=== PATIENT | female | born 1990 | race Caucasian/White ===

== ENCOUNTER 2017-01-04 22:42 | Observation (INO) | payer MEDICAID ==
[~2017-01-04] VITALS: Ht 162.6 cm; Wt 100.0 kg
[~2017-01-04 22:42] MED LIST: [UNRECOGNIZED DRUG - CODE] PO
[2017-01-05] MEDS ORDERED: BUTALB/APAP/CAFFEINE 50MG/325MG/40MG PO PRN
[2017-01-05 00:19] LABS: ASPARTATE AMINO TRANSFERASE 9 U/L (15-37); BLOOD UREA NITROGEN 7 mg/dL (7-18)
== END 2017-01-05 05:00 | disposition home or self-care (01) ==
LOC: LDOP 22:42 → LDIP 01-05 00:30
PROVIDERS: ADMIT Obstetrics & Gynecology; ATTEND Obstetrics & Gynecology
DX: O26.893 Other specified pregnancy related conditions, third trimester (principal); R51 Headache; R03.0 Elevated blood-pressure reading, without diagnosis of hypertension; Z3A.36 36 weeks gestation of pregnancy
CPT/HCPCS: 36415; 59025; 80053; 81001; 82248; 82570; 84156; 84550; 85025; 99211; G0378; G0463

== ENCOUNTER 2017-01-14 17:55 | Inpatient (IN) | payer MEDICAID ==
[~2017-01-14] VITALS: Ht 157.5 cm; Wt 100.5 kg
[~2017-01-14 17:55] MED LIST changes: +CEFAZOLIN 1,000 MG ONE; +DEXAMETHASONE 4 MG/ML, 1ML ONE; +LABETALOL 5MG/ML 40ML VIAL ONE; +METOCLOPRAMIDE 5 MG/ML, 2ML ONE; +ONDANSETRON 2MG/ML, 2ML ONE; +OXYTOCIN 10 UNITS/ML, 1ML ONE; +SODIUM CITRATE/CITRIC ACID 30 ML UDC ONE
[2017-01-14 18:27] VITALS: BP 129/81
[2017-01-14] MEDS ORDERED: TERBUTALINE 1 MG/ML, 1ML IV PRN (18:30)
[2017-01-14 18:48] LABS: PATH.CAST-FLAG NOT PRESENT; SPERM-FLAG NOT PRESENT; SRC-FLAG NOT PRESENT; XTAL-FLAG NOT PRESENT; YLC-FLAG NOT PRESENT
[2017-01-14] MEDS ORDERED: PLEASE ENTER HEIGHT AND WEIGHT MC SCH (19:00)
[2017-01-14] MEDS ORDERED: TERBUTALINE 1 MG/ML, 1ML ONE (19:06)
[2017-01-14 19:32] LABS: ASPARTATE AMINO TRANSFERASE 11 U/L (15-37); BLOOD UREA NITROGEN 9 mg/dL (7-18)
[2017-01-14] MEDS ORDERED: TERBUTALINE 1 MG/ML, 1ML SQ ONE (19:44)
[2017-01-14] MEDS ORDERED: OXYTOCIN 30U/ 0.9% NaCL 500ML 500 ML IV ONE (19:54)
[2017-01-14] MEDS ORDERED: D5%-LACTATED RINGERS 1,000 ML IV SCH (19:54)
[2017-01-14] MEDS ORDERED: LACTATED RINGERS 1,000 ML IV SCH ×3 (19:54→20:30)
[2017-01-14] MEDS ORDERED: ONDANSETRON 2MG/ML, 2ML IVPush PRN ×2 (20:00→20:30)
[2017-01-14] MEDS ORDERED: TERBUTALINE 1 MG/ML, 1ML SQ PRN (20:00)
[2017-01-14] MEDS ORDERED: FENTANYL PF 100 MCG/2ML IV PRN ×2 (20:00→20:30)
[2017-01-14] MEDS ORDERED: FENTANYL PF 100 MCG/2ML IVPush PRN (20:00)
[2017-01-14] MEDS ORDERED: NEWBORN KIT ONE ×2 (20:15→20:44)
[2017-01-14] MEDS ORDERED: OXYTOCIN 30U/ 0.9% NaCL 500ML 500 ML IV SCH (20:29)
[2017-01-14] MEDS ORDERED: SODIUM CITRATE/CITRIC ACID 30 ML UDC PO ONE (20:30)
[2017-01-14] MEDS ORDERED: ONDANSETRON 2MG/ML, 2ML IVPush ONE (20:30)
[2017-01-14] MEDS ORDERED: METOCLOPRAMIDE 5 MG/ML, 2ML IV ONE (20:30)
[2017-01-14] MEDS ORDERED: LABETALOL 5MG/ML, 20ML IV PRN (20:30)
[2017-01-14] MEDS ORDERED: MEPERIDINE/PF 25MG/0.5ML IVPush PRN (20:30)
[2017-01-14] MEDS ORDERED: PROMETHAZINE 25 MG/ML, 1ML IV PRN (20:30)
[2017-01-14] MEDS ORDERED: ALBUTEROL SULFATE 2.5 MG/3 ML NPPB PRN (20:30)
[2017-01-14] MEDS ORDERED: EPHEDRINE 50 MG/ML, 1ML IVPush PRN (20:30)
[2017-01-14] MEDS ORDERED: hydrALAzine 20 MG/ML, 1ML IV PRN (20:30)
[2017-01-14] MEDS ORDERED: OXYcodone 5 MG/5 ML ORAL.SOL UDC PO PRN (20:30)
[2017-01-14] MEDS ORDERED: LACTATED RINGERS 1,000 ML IVBOLUS ONE (20:30)
[2017-01-14] MEDS ORDERED: HYDROcodone/APAP 7.5-325MG/15ML UDC PO PRN (20:30)
[2017-01-14] MEDS ORDERED: MIDAZOLAM 1 MG/ML, 2ML IV PRN (20:30)
[2017-01-14] MEDS ORDERED: SODIUM CITRATE/CITRIC ACID 30 ML UDC ONE (20:34)
[2017-01-14] MEDS ORDERED: METOCLOPRAMIDE 5 MG/ML, 2ML ONE (20:34)
[2017-01-14] MEDS ORDERED: FENTANYL PF 100 MCG/2ML ONE (20:36)
[2017-01-14] MEDS: OXYTOCIN 30U/ 0.9% NaCL 500ML 500 ML IV SCH (22:28)
[2017-01-14] MEDS: LACTATED RINGERS 1,000 ML IV SCH ×2 (22:28)
[2017-01-14] MEDS ORDERED: MEASLES,MUMPS&RUBELLA VACC/PF 0.5 ML SQ-VACC PRN (22:30)
[2017-01-14] MEDS ORDERED: DIPH,PERTUSS(ACELL),TET VAC/PF NC IM-VACC PRN (22:30)
[2017-01-14] MEDS: ACETAMINOPHEN 325 MG TABLET PO SCH (22:30)
[2017-01-14] MEDS ORDERED: OXYcodone IR 5MG TABLET PO PRN (22:30)
[2017-01-14] MEDS ORDERED: GLYCERIN ADULT SUPP PR PRN (22:30)
[2017-01-14] MEDS ORDERED: BISACODYL 10 MG SUPP PR PRN (22:30)
[2017-01-14] MEDS ORDERED: CALCIUM CARBONATE 500 MG TAB.CHEW PO PRN (22:30)
[2017-01-14] MEDS ORDERED: METOCLOPRAMIDE 5 MG/ML, 2ML IV PRN (22:30)
[2017-01-14] MEDS ORDERED: ACETAMINOPHEN 325 MG TABLET PO PRN (22:30)
[2017-01-14] MEDS ORDERED: SIMETHICONE 80 MG CHEW TAB PO PRN (22:30)
[2017-01-14] MEDS ORDERED: morphine SULFATE 10 MG/ML, 1ML IVPush PRN ×2 (22:30)
[2017-01-14] MEDS ORDERED: MISOPROSTOL 200 MCG TABLET PR PRN (22:30)
[2017-01-14] MEDS ORDERED: CARBOPROST TROMETHAMINE 250 MCG/ML, 1ML IM PRN (22:30)
[2017-01-14] MEDS ORDERED: ONDANSETRON 2MG/ML, 2ML IV PRN (22:30)
[2017-01-14] MEDS ORDERED: OXYcodone 5 MG/5 ML ORAL.SOL UDC ONE (22:34)
[2017-01-14] MEDS ORDERED: OXYTOCIN 30U/ 0.9% NaCL 500ML 500 ML ONE (23:04)
[2017-01-14] MEDS ORDERED: ONDANSETRON 2MG/ML, 2ML ONE (23:16)
[2017-01-15 01:00] VITALS: BP 128/81
[2017-01-15] MEDS: KETOROLAC 30 MG/1 ML IV SCH ×2 (01:11→07:43)
[2017-01-15] MEDS: ACETAMINOPHEN 325 MG TABLET PO SCH ×4 (05:53→19:32)
[2017-01-15 06:00] VITALS: BP 129/84
[2017-01-15] MEDS: LACTATED RINGERS 1,000 ML IV SCH ×5 (06:28→22:28)
[2017-01-15 07:30] VITALS: BP 139/84
[2017-01-15] MEDS: OXYTOCIN 30U/ 0.9% NaCL 500ML 500 ML IV SCH ×2 (08:28→18:28)
[2017-01-15] MEDS: PRENATAL VIT/IRON/FA 1 EACH TABLET PO SCH (10:00)
[2017-01-15] MEDS: DOCUSATE 100 MG CAPSULE PO PRN ×2 (10:00→19:33)
[2017-01-15] MEDS: OXYcodone IR 5MG TABLET PO PRN ×4 (10:00→22:56)
[2017-01-15] MEDS: IBUPROFEN 600 MG TABLET PO PRN ×2 (13:05→19:33)
[2017-01-15 14:14] VITALS: BP 102/60
[2017-01-15 16:45] VITALS: BP 113/70
[2017-01-15 19:43] VITALS: BP 115/77
[2017-01-16] MEDS: IBUPROFEN 600 MG TABLET PO PRN ×4 (01:54→22:58)
[2017-01-16] MEDS: ACETAMINOPHEN 325 MG TABLET PO SCH ×5 (01:54→22:58)
[2017-01-16] MEDS: LACTATED RINGERS 1,000 ML IV SCH ×5 (04:28→22:28)
[2017-01-16] MEDS: OXYTOCIN 30U/ 0.9% NaCL 500ML 500 ML IV SCH ×2 (04:28→14:28)
[2017-01-16] MEDS: OXYcodone IR 5MG TABLET PO PRN ×5 (05:58→22:57)
[2017-01-16 06:50] VITALS: BP 124/90
[2017-01-16] MEDS: DOCUSATE 100 MG CAPSULE PO PRN ×2 (08:21→22:58)
[2017-01-16] MEDS: PRENATAL VIT/IRON/FA 1 EACH TABLET PO SCH (08:22)
[2017-01-16 19:30] VITALS: BP 123/77
[2017-01-17] MEDS: OXYTOCIN 30U/ 0.9% NaCL 500ML 500 ML IV SCH ×2 (00:28→02:49)
[2017-01-17] MEDS: LACTATED RINGERS 1,000 ML IV SCH ×3 (00:28→02:49)
[2017-01-17] MEDS: OXYcodone IR 5MG TABLET PO PRN ×3 (03:05→12:58)
[2017-01-17] MEDS ORDERED: OXYC5CAP4 PO (03:56)
[2017-01-17] MEDS ORDERED: IBUP-1222 PO (03:58)
[2017-01-17] MEDS ORDERED: DOCU-30 PO (03:59)
[2017-01-17] MEDS ORDERED: ACET325T14 PO (04:01)
[2017-01-17] MEDS: IBUPROFEN 600 MG TABLET PO PRN ×2 (04:55→12:58)
[2017-01-17] MEDS: ACETAMINOPHEN 325 MG TABLET PO SCH ×2 (04:55→12:58)
[2017-01-17] MEDS: DOCUSATE 100 MG CAPSULE PO PRN (07:52)
[2017-01-17] MEDS: PRENATAL VIT/IRON/FA 1 EACH TABLET PO SCH (07:52)
[2017-01-17 07:56] VITALS: BP 129/85
== END 2017-01-17 13:30 | disposition home or self-care (01) | DRG 765 ==
LOC: LDOP 17:55 → UNDOADMOB 18:00 → OBSVTOIN 18:00 → LDIP 18:00 → INTOOBSV 18:00 → OBSVTOIN 19:58 → LDIP 19:58 → 2NW 01-15 00:06
PROVIDERS: ADMIT Student in an Organized Health Care Education/Training Program; ATTEND Student in an Organized Health Care Education/Training Program
PROC: 10D00Z1 Extraction of Products of Conception, Low, Open Approach (ICD-10-PCS; principal; 2017-01-14)
DX: O32.1XX0 Maternal care for breech presentation, not applicable or unspecified (principal); O99.354 Diseases of the nervous system complicating childbirth; O14.04 Mild to moderate pre-eclampsia, complicating childbirth; Z37.0 Single live birth; Z3A.38 38 weeks gestation of pregnancy; G43.909 Migraine, unspecified, not intractable, without status migrainosus
CPT/HCPCS: 36415; 59412; 80053; 81001; 82248; 82570; 82803; 84156; 84550; 85025; 86850; 86900; 90715; J0690; J1100; J1885; J2405; J3010; J2270; J2590; J2765; J3105; J7120

== ENCOUNTER 2017-04-20 11:23 | Emergency (ER) | payer MEDICAID ==
[~2017-04-20] VITALS: Ht 154.9 cm; Wt 96.0 kg
[~2017-04-20 11:23] MED LIST changes: +ACET325T14 PO; -CEFAZOLIN 1,000 MG ONE; -DEXAMETHASONE 4 MG/ML, 1ML ONE; +DOCU-131 PO; +IBUP-1222 PO; -LABETALOL 5MG/ML 40ML VIAL ONE; -METOCLOPRAMIDE 5 MG/ML, 2ML ONE; -ONDANSETRON 2MG/ML, 2ML ONE; +OXYC5CAP2 PO; -OXYTOCIN 10 UNITS/ML, 1ML ONE; -SODIUM CITRATE/CITRIC ACID 30 ML UDC ONE
[2017-04-20] MEDS ORDERED: LIDOCAINE 1%, 20ML ONE ×2 (12:07→13:05)
[2017-04-20] MEDS ORDERED: HYDROcodone/APAP 5/325 TABLET ONE (12:42)
[2017-04-20] MEDS ORDERED: HYDROcodone/APAP 5/325 TABLET PO ONE (13:00)
[2017-04-20] MEDS ORDERED: BACITRACIN ZINC OINT 500U/GM, 0.9 GM ONE (13:54)
[2017-04-20 14:23] VITALS: BP 137/87
== END 2017-04-20 14:27 | disposition home or self-care (01) ==
LOC: ED 14:20
DX: S01.01XA Laceration without foreign body of scalp, initial encounter (principal); W18.09XA Striking against other object with subsequent fall, initial encounter; Y93.89 Activity, other specified; Y99.8 Other external cause status; Y92.89 Other specified places as the place of occurrence of the external cause
CPT/HCPCS: 12002; 99284

== ENCOUNTER 2017-04-28 10:03 | Emergency (ER) | payer MEDICAID ==
[~2017-04-28] VITALS: Ht 154.9 cm; Wt 96.1 kg
[2017-04-28 10:08] VITALS: BP 131/74
[2017-04-28] MEDS ORDERED: BACITRACIN ZINC OINT 500U/GM, 0.9 GM ONE (10:39)
== END 2017-04-28 10:44 | disposition home or self-care (01) ==
LOC: ED 10:38
DX: S01.81XD Laceration without foreign body of other part of head, subsequent encounter (principal)
CPT/HCPCS: 99282

== ENCOUNTER 2018-08-13 13:07 | Emergency (ER) | payer MEDICAID ==
[~2018-08-13] VITALS: Ht 157.5 cm; Wt 108.1 kg
--- NOTE | 2018-08-13 13:34 | NUR ---
BREAK RN: CONTACT WITH PT. 27 YR OLD FEMALE HERE WITH "I HAVE HAD A FEVER AND BODY ACHE FOR LIKE 4 DAYS ALREADY, I HAVE BEEN NAUSEATED. I HAD DIARRHEA YESTERDAY. I ATE BREAKFAST BUT I HAVENT GONE TO THE BR TODAY.
--- NOTE | 2018-08-13 13:37 | NUR ---
REPORT TO LENARD BROOKE.
--- NOTE | 2018-08-13 13:48 | NUR ---
PT DENINES DIARRHEA TODAY. PT STATES, "I HAVE A SORE THROAT, SINCE WEDNESDAY, FEVERS, BUT I DON'T HAVE A THERMOMETER AT HOME SO I DIDN'T CHECK THE TEMP. I GET STREP THROAT EVERY YEAR. THE DOCTORS AT [facility] SAID I SHOULD BET MY TONSILS REMOVED." NADN. ALL SAFETY MEASURES IN PLACE. PT HAS BLANKET AND CALL LIGHT WITHIN REACH. NO NEEDS EXPRESSED AT THIS TIME.
[2018-08-13] MEDS ORDERED: D-ME245.3 PO (13:52)
[2018-08-13] MEDS ORDERED: KETOROLAC 30 MG/1 ML IM ONE (14:00)
[2018-08-13] MEDS ORDERED: KETOROLAC 30 MG/1 ML ONE (14:11)
[2018-08-13 14:48] LABS: RAPID INFLUENZA A Negative (Negative); RAPID INFLUENZA B Negative (Negative)
--- NOTE | 2018-08-13 14:58 | NUR ---
PT STATES, "MY THROAT PAIN IS STILL THERE, BUT MY BODYACHES ARE BETTER."
--- NOTE | 2018-08-13 15:28 | NUR ---
Patient given discharge instructions and they have confirmed that they understand the instructions. Patient ambulatory with steady gait. PT LEFT WITH PRESCRIPTION, DISCHARGE PAPERWORK, AND ALL PERSONAL BELONGINGS.
[2018-08-13 15:29] VITALS: BP 134/81
== END 2018-08-13 15:31 | disposition home or self-care (01) ==
LOC: ED 15:28
DX: J02.0 Streptococcal pharyngitis (principal)
CPT/HCPCS: 87081; 87400; 87880; 96372; 99283; J1885

== ENCOUNTER 2018-08-15 18:29 | Emergency (ER) | payer MEDICAID ==
[~2018-08-15] VITALS: Ht 156.2 cm; Wt 106.5 kg
[~2018-08-15 18:29] MED LIST changes: +D-ME245.3 PO
[2018-08-15 18:58] LABS: BASOPHILS # (AUTO) 0.02 x10^3/uL (0-0.1); BASOPHILS % (AUTO) 0 % (0-1); EOSINOPHILS # (AUTO) 0.01 x10^3/uL (0-0.4); EOSINOPHILS % (AUTO) 0 % (1-7); LYMPHOCYTES # (AUTO) 1.83 x10^3/uL (1-3.4); LYMPHOCYTES % (AUTO) 16 % (22-44); MD NO; MEAN CORPUSCULAR HEMOGLOBIN 29.9 pg (27.0-34.8); MEAN CORPUSCULAR HGB CONC 33.7 g/dL (32.4-35.8); MEAN CORPUSCULAR VOLUME 88.8 fL (80-100); MEAN PLATELET VOLUME 8.3 fL (7.4-10.4); MONOCYTES % (AUTO) 3 % (2-9); NEUTROPHILS # (AUTO) 9.51 x10^3/uL (1.8-6.8); NEUTROPHILS % (AUTO) 81 % (42-75); PLATELET COUNT 304 x10^3/uL (130-400); RED BLOOD COUNT 4.72 x10^6/uL (3.82-5.3)
[2018-08-15 19:12] LABS: ALBUMIN 3.8 g/dL (3.4-5.0); ANION GAP 8 mmol/L (5-15); CALCIUM 8.8 mg/dL (8.5-10.1); CHLORIDE 106 mmol/L (98-107)
--- NOTE | 2018-08-15 19:16 | NUR ---
PT TO ROOM FROM LOBBY
[2018-08-15 19:17] LABS: CREATININE 0.63 mg/dL (0.55-1.02)
--- NOTE | 2018-08-15 19:22 | NUR ---
PT ARRIVES TO ED WITH SORE THROAT AND FEELS LIKE HER TONSILS ARE MORE SWOLLEN. PT WAS SEEN HERE 3 DAYS AGO AND STARTED ON ABX FOR PAOSSIBLE BACTERIAL INFECTION IN TONSILS. PT SAID SHE FELT CHILLS LAST NIGHT. PT RESTING IN BED. VSS.
[2018-08-15] MEDS ORDERED: DEXAMETHASONE 4 MG TABLET PO ONE (20:00)
[2018-08-15] MEDS ORDERED: KETOROLAC 30 MG/1 ML IM ONE (20:00)
[2018-08-15] MEDS ORDERED: KETOROLAC 30 MG/1 ML ONE (20:06)
[2018-08-15] MEDS ORDERED: DEXAMETHASONE 4 MG TABLET ONE (20:06)
[2018-08-15] MEDS ORDERED: ACETAMINOPHEN 500 MG TABLET ONE (20:13)
[2018-08-15] MEDS ORDERED: SODIUM CHLORIDE 0.9% 1,000ML IVBOLUS ONE (20:30)
[2018-08-15] MEDS ORDERED: ACETAMINOPHEN 500 MG TABLET PO ONE (20:30)
[2018-08-15] MEDS ORDERED: SODIUM CHLORIDE FLUSH 10ML SYR IVF ONE (20:30)
--- NOTE | 2018-08-15 21:20 | NUR ---
Lab informed that delay in urine is due to no order.
[2018-08-15 21:26] LABS: MICROSCOPIC AUTO
[2018-08-15 21:32] LABS: CULTURE INDICATED? NO
[2018-08-15] MEDS ORDERED: AZITHROMYCIN 500 MG TABLET PO ONE (22:00)
[2018-08-15] MEDS ORDERED: AZITHROMYCIN 500 MG TABLET ONE (22:18)
--- NOTE | 2018-08-15 22:34 | NUR ---
PT MEDICATED PER EMAR.
[2018-08-15 22:53] VITALS: BP 128/87
--- NOTE | 2018-08-15 22:53 | NUR ---
Patient/Caregiver given discharge instructions and they have confirmed that they understand the instructions. Patient ambulatory with steady gait.
== END 2018-08-15 23:03 ==
LOC: ED 21:58
DX: J18.9 Pneumonia, unspecified organism (principal); K08.89 Other specified disorders of teeth and supporting structures
CPT/HCPCS: 36415; 71046; 80048; 81001; 82040; 84703; 85025; 86308; 93005; 96372; 99284; J1885; J7030

== ENCOUNTER 2018-12-18 11:44 | Emergency (ER) | payer MEDICAID ==
[~2018-12-18] VITALS: Ht 154.9 cm; Wt 106.9 kg
[~2018-12-18 11:44] MED LIST changes: +oral contraceptive PO
[2018-12-18 11:54] VITALS: BP 136/90
[2018-12-18] MEDS ORDERED: DEXAMETHASONE 4 MG TABLET PO ONE (12:00)
[2018-12-18] MEDS ORDERED: DEXAMETHASONE 4 MG TABLET ONE (12:15)
== END 2018-12-18 13:05 | disposition home or self-care (01) ==
LOC: ED 12:40
DX: B34.9 Viral infection, unspecified (principal)
CPT/HCPCS: 87081; 87880; 99283

== ENCOUNTER 2019-02-02 20:06 | Emergency (ER) | payer MEDICAID ==
[~2019-02-02] VITALS: Ht 157.5 cm; Wt 107.5 kg
[2019-02-02] MEDS ORDERED: KETOROLAC 30 MG/1 ML ONE (20:40)
--- NOTE | 2019-02-02 20:50 | NUR ---
URINE COLLECTED/SENT TO LAB. MED GIVEN PER ERP ORDER. CALL LIGHT WITHIN REACH, WARM BLANKET PROVIDED.
[2019-02-02] MEDS ORDERED: KETOROLAC 30 MG/1 ML IM ONE (21:00)
[2019-02-02 21:01] LABS: HCG UR SG 1.025 (1.003-1.030)
[2019-02-02 21:03] LABS: MICROSCOPIC INDICATED
[2019-02-02 21:04] LABS: CULTURE INDICATED? YES
[2019-02-02 21:32] VITALS: BP 128/78
== END 2019-02-02 21:34 | disposition home or self-care (01) ==
LOC: ED 20:23
DX: M54.5 Low back pain (principal); F17.200 Nicotine dependence, unspecified, uncomplicated
CPT/HCPCS: 72110; 81001; 81025; 87086; 87147; 96372; 99284; J1885

== ENCOUNTER 2019-06-08 10:22 | Emergency (ER) | payer MEDICAID ==
[~2019-06-08] VITALS: Ht 154.9 cm; Wt 103.8 kg
[~2019-06-08 10:22] MED LIST changes: +[UNRECOGNIZED DRUG - CODE] PO; -[UNRECOGNIZED DRUG - CODE] PO
[2019-06-08 10:32] VITALS: BP 116/66
[2019-06-08 11:35] LABS: RAPID INFLUENZA A Negative (Negative); RAPID INFLUENZA B Negative (Negative)
== END 2019-06-08 12:18 | disposition home or self-care (01) ==
LOC: ED 12:06
DX: O98.511 Other viral diseases complicating pregnancy, first trimester (principal); B34.9 Viral infection, unspecified; Z3A.13 13 weeks gestation of pregnancy; Z87.891 Personal history of nicotine dependence
CPT/HCPCS: 87081; 87400; 87880; 99283

== ENCOUNTER 2019-06-19 10:07 | Emergency (ER) | payer MEDICAID ==
[~2019-06-19] VITALS: Ht 154.9 cm; Wt 102.0 kg
--- NOTE | 2019-06-19 10:48 | NUR ---
PATIENT PRESENTS TO ED TODAY FOR FREQUENT URINATION AND LOW BACK PAIN. 15 WEEKS , DENIES ABD PAIN/VAG BLEEDING. PATIENT AMB WITH STEADY GAIT TO BATHROOM, UA COLLECTED AND SENT TO LAB. CALL LIGHT WITHIN REACH.
[2019-06-19] MEDS ORDERED: PREN1TAB60 PO (10:54)
[2019-06-19] MEDS ORDERED: IRON15TA3 PO (10:55)
[2019-06-19 11:20] LABS: MICROSCOPIC AUTO
[2019-06-19 11:23] LABS: CULTURE INDICATED? YES
[2019-06-19 11:51] LABS: BASOPHILS # (AUTO) 0.05 x10^3/uL (0-0.1); BASOPHILS % (AUTO) 1 % (0-1); EOSINOPHILS # (AUTO) 0.07 x10^3/uL (0-0.4); EOSINOPHILS % (AUTO) 1 % (1-7); LYMPHOCYTES # (AUTO) 2.37 x10^3/uL (1-3.4); LYMPHOCYTES % (AUTO) 25 % (22-44); MD NO; MEAN CORPUSCULAR HEMOGLOBIN 29.7 pg (27.0-34.8); MEAN CORPUSCULAR HGB CONC 33.2 g/dL (32.4-35.8); MEAN CORPUSCULAR VOLUME 89.4 fL (80-100); MEAN PLATELET VOLUME 8.8 fL (7.4-10.4); MONOCYTES # (AUTO) 0.33 x10^3/uL (0.2-0.8); MONOCYTES % (AUTO) 3 % (2-9); NEUTROPHILS % (AUTO) 70 % (42-75); PLATELET COUNT 295 x10^3/uL (130-400); RED CELL DISTRIBUTION WIDTH 14.2 % (9.6-15.2)
[2019-06-19 11:53] VITALS: BP 126/71
--- NOTE | 2019-06-19 11:53 | NUR ---
VS UPDATED IN CHART, PATIENT SITTING IN GURNEY, RESP EVEN/UNLABORED, NADN. AWAITING LAB RESULTS PRIOR TO RECHECK. NO ADDITIONAL NEEDS AT THIS TIME.
[2019-06-19 12:03] LABS: ALBUMIN 3.2 g/dL (3.4-5.0); ANION GAP 5 mmol/L (5-15); CALCIUM 8.8 mg/dL (8.5-10.1); CHLORIDE 108 mmol/L (98-107)
[2019-06-19 12:11] LABS: ALANINE AMINOTRANSFERASE 9 U/L (12-78); ALKALINE PHOSPHATASE 39 U/L (45-117); BILIRUBIN,TOTAL 0.3 mg/dL (0.2-1.0); CREATININE 0.46 mg/dL (0.55-1.02); TOTAL PROTEIN 7.3 g/dL (6.4-8.2)
--- NOTE | 2019-06-19 12:57 | NUR ---
Patient/Caregiver given discharge instructions and they have confirmed that they understand the instructions. Patient ambulatory with steady gait. Pt left in NAD with all personal belongings.
== END 2019-06-19 12:59 | disposition home or self-care (01) ==
LOC: ED 12:44
DX: O26.892 Other specified pregnancy related conditions, second trimester (principal); R10.9 Unspecified abdominal pain; Z3A.15 15 weeks gestation of pregnancy
CPT/HCPCS: 36415; 76815; 80053; 81001; 85025; 87086; 99284

== ENCOUNTER 2019-07-31 18:50 | Emergency (ER) | payer SELFPAY ==
[~2019-07-31] VITALS: Ht 154.9 cm; Wt 101.4 kg
[~2019-07-31 18:50] MED LIST changes: +IRON15TA3 PO; +PREN1TAB60 PO
[2019-07-31 19:22] VITALS: BP 90/75
--- NOTE | 2019-07-31 19:26 | NUR ---
PT TO LOBBY, WAIT TIME EXPLAINED.
[2019-07-31] MEDS ORDERED: ACETAMINOPHEN 325 MG TABLET ONE (20:07)
[2019-07-31] MEDS ORDERED: ACETAMINOPHEN 500 MG TABLET PO ONE (20:30)
[2019-07-31 20:34] LABS: RAPID INFLUENZA A Negative (Negative); RAPID INFLUENZA B Negative (Negative)
== END 2019-07-31 21:07 | disposition home or self-care (01) ==
LOC: ED 20:34
DX: J02.9 Acute pharyngitis, unspecified (principal); R05 Cough; M79.10 Myalgia, unspecified site
CPT/HCPCS: 87081; 87400; 87880; 99283

== ENCOUNTER 2019-08-03 15:43 | Emergency (ER) | payer MEDICAID ==
[~2019-08-03] VITALS: Ht 154.9 cm; Wt 100.0 kg
[2019-08-03 15:55] VITALS: BP 124/69
--- NOTE | 2019-08-03 16:23 | NUR ---
FIRST CONTACT WITH PT. PT STATES "I THINK I HAVE A SINUS INFECTION. IT'S BEEN THE LAST TWO WEEKS." PT 21 WEEKS NO C/O ABD PAIN, VB. PT'S AOX4. RESPS EVEN AND UNLABORED.
--- NOTE | 2019-08-03 17:05 | NUR ---
Patient given discharge instructions and they have confirmed that they understand the instructions. Patient ambulatory with steady gait.
== END 2019-08-03 17:06 | disposition home or self-care (01) ==
LOC: ED 16:45
DX: B34.9 Viral infection, unspecified (principal)
CPT/HCPCS: 71046; 99283

== ENCOUNTER 2019-12-07 00:37 | Inpatient (IN) | payer MEDICAID ==
[~2019-12-07] VITALS: Ht 154.9 cm; Wt 104.5 kg
[2019-12-07] MEDS ORDERED: D5%-LACTATED RINGERS 1,000 ML IV SCH (04:56)
[2019-12-07] MEDS ORDERED: OXYTOCIN 30U/ 0.9% NaCL 500ML 500 ML IV PRN (04:56)
[2019-12-07] MEDS ORDERED: OXYTOCIN 30U/ 0.9% NaCL 500ML 500 ML IV ONE (04:56)
[2019-12-07] MEDS ORDERED: FENTANYL PF 100 MCG/2ML IVPush PRN (05:00)
[2019-12-07] MEDS ORDERED: ALUMINUM/MAG/SIMETHICONE 30 ML UDC PO PRN (05:00)
[2019-12-07] MEDS ORDERED: CALCIUM CARBONATE 500 MG TAB.CHEW PO PRN (05:00)
[2019-12-07] MEDS ORDERED: FENTANYL PF 100 MCG/2ML IV PRN (05:00)
[2019-12-07] MEDS ORDERED: PENICILLIN GK 5,000,000 UNITS in DEXTROSE 5% 100 ML IVPB ONE (05:00)
[2019-12-07] MEDS ORDERED: TERBUTALINE 1 MG/ML, 1ML SQ PRN (05:00)
[2019-12-07] MEDS ORDERED: ONDANSETRON 2MG/ML, 2ML IVPush PRN ×2 (05:00→14:00)
[2019-12-07] MEDS: LACTATED RINGERS 1,000 ML IV SCH ×2 (05:15→10:27)
[2019-12-07 05:33] LABS: BASOPHILS # (AUTO) 0.06 x10^3/uL (0-0.1); BASOPHILS % (AUTO) 1 % (0-1); EOSINOPHILS # (AUTO) 0.03 x10^3/uL (0-0.4); EOSINOPHILS % (AUTO) 0 % (1-7); LYMPHOCYTES # (AUTO) 3.06 x10^3/uL (1-3.4); LYMPHOCYTES % (AUTO) 29 % (22-44); MD NO; MEAN CORPUSCULAR HEMOGLOBIN 27.8 pg (27.0-34.8); MEAN CORPUSCULAR HGB CONC 32.9 g/dL (32.4-35.8); MEAN CORPUSCULAR VOLUME 84.5 fL (80-100); MEAN PLATELET VOLUME 9.6 fL (7.4-10.4); MONOCYTES # (AUTO) 0.47 x10^3/uL (0.2-0.8); MONOCYTES % (AUTO) 5 % (2-9); NEUTROPHILS # (AUTO) 6.82 x10^3/uL (1.8-6.8); NEUTROPHILS % (AUTO) 65 % (42-75); PLATELET COUNT 224 x10^3/uL (130-400); RED BLOOD COUNT 3.89 x10^6/uL (3.82-5.3)
[2019-12-07] MEDS ORDERED: OXYTOCIN 30U/ 0.9% NaCL 500ML 500 ML ONE ×2 (06:43→19:15)
[2019-12-07] MEDS ORDERED: NEWBORN KIT ONE (06:43)
[2019-12-07] MEDS ORDERED: LIDOCAINE 1%, 20ML ONE (07:00)
[2019-12-07] MEDS ORDERED: MISOPROSTOL 200 MCG TABLET ONE (07:01)
[2019-12-07] MEDS ORDERED: FENTANYL PF 500 MCG, BUPIVACAINE/PF 0.5%, 30ML 62.5 ML in SODIUM CHLORIDE 0.9% 177.5 ML EPIDCONT SCH (09:14)
[2019-12-07] MEDS ORDERED: LACTATED RINGERS 1,000 ML IVBOLUS PRN ×2 (09:30→14:00)
[2019-12-07] MEDS ORDERED: FENTANYL PF 100 MCG/2ML ONE (10:17)
[2019-12-07] MEDS: PENICILLIN GK 2,500,000 UNITS in DEXTROSE 5% 100 ML IVPB SCH ×2 (10:41→15:33)
[2019-12-07] MEDS ORDERED: BUPIVACAINE 0.25% ONE (13:25)
[2019-12-07] MEDS ORDERED: FENTANYL/BUPIV./NS/PF 250 ML EPIDCONT SCH (13:51)
[2019-12-07] MEDS ORDERED: LACTATED RINGERS 1,000 ML IV SCH (13:51)
[2019-12-07] MEDS ORDERED: NALOXONE 0.4 MG/ML, 1ML IVPush PRN (14:00)
[2019-12-07] MEDS ORDERED: EPHEDRINE 50 MG/ML, 1ML IVPush PRN (14:00)
[2019-12-07] MEDS ORDERED: DIPHENHYDRAMINE 50 MG/ML, 1ML IVPush PRN (14:00)
[2019-12-07] MEDS: OXYTOCIN 30U/ 0.9% NaCL 500ML 500 ML IV SCH (18:54)
[2019-12-07] MEDS ORDERED: ACETAMINOPHEN 325 MG TABLET PO PRN (19:00)
[2019-12-07] MEDS ORDERED: RHOGAM FROM BLOOD BANK 1 NOTE EA IM/IV ONE (19:00)
[2019-12-07] MEDS ORDERED: ONDANSETRON 2MG/ML, 2ML IV PRN (19:00)
[2019-12-07] MEDS ORDERED: MISOPROSTOL 200 MCG TABLET PR PRN (19:00)
[2019-12-07] MEDS ORDERED: BISACODYL 10 MG SUPP PR PRN (19:00)
[2019-12-07] MEDS ORDERED: OXYcodone/APAP 5/325MG TABLET PO PRN (19:00)
[2019-12-07 21:10] VITALS: BP 128/85
[2019-12-08] MEDS: IBUPROFEN 800 MG TABLET PO PRN ×3 (00:06→16:27)
[2019-12-08] MEDS: DOCUSATE 100 MG CAPSULE PO PRN ×2 (00:08→07:23)
[2019-12-08 00:15] VITALS: BP 111/59
[2019-12-08 02:59] LABS: BASOPHILS # (AUTO) 0.05 x10^3/uL (0-0.1); BASOPHILS % (AUTO) 0 % (0-1); EOSINOPHILS # (AUTO) 0.04 x10^3/uL (0-0.4); EOSINOPHILS % (AUTO) 0 % (1-7); LYMPHOCYTES # (AUTO) 2.67 x10^3/uL (1-3.4); LYMPHOCYTES % (AUTO) 23 % (22-44); MD NO; MEAN CORPUSCULAR VOLUME 84.7 fL (80-100); MEAN PLATELET VOLUME 9.8 fL (7.4-10.4); MONOCYTES # (AUTO) 0.46 x10^3/uL (0.2-0.8); MONOCYTES % (AUTO) 4 % (2-9); NEUTROPHILS # (AUTO) 8.56 x10^3/uL (1.8-6.8); NEUTROPHILS % (AUTO) 73 % (42-75); PLATELET COUNT 206 x10^3/uL (130-400); RED BLOOD COUNT 3.84 x10^6/uL (3.82-5.3); RED CELL DISTRIBUTION WIDTH 16.5 % (9.6-15.2)
[2019-12-08 04:00] VITALS: BP 106/59
[2019-12-08] MEDS: OXYTOCIN 30U/ 0.9% NaCL 500ML 500 ML IV SCH ×2 (04:54→14:54)
[2019-12-08 07:30] VITALS: BP 123/85
[2019-12-08] MEDS ORDERED: PRENATAL VIT/IRON/FA 1 EACH TABLET PO SCH (09:00)
[2019-12-08] MEDS: HYDROcodone/APAP 5/325 TABLET PO PRN ×2 (10:37→16:27)
[2019-12-08] MEDS ORDERED: DOCU-131 PO (16:20)
[2019-12-08] MEDS ORDERED: IBUP-1223 PO (16:20)
[2019-12-08] MEDS ORDERED: MEASLES,MUMPS&RUBELLA VACC/PF 0.5 ML SQ-VACC ONE (18:56)
== END 2019-12-08 19:55 | disposition home or self-care (01) | DRG 807 ==
LOC: LDIP 04:55 → 2NW 22:05
PROVIDERS: ADMIT Obstetrics & Gynecology; ATTEND Obstetrics & Gynecology
PROC: 10E0XZZ Delivery of Products of Conception, External Approach (ICD-10-PCS; principal; 2019-12-07)
PROC: 3E0R3BZ Introduction of Anesthetic Agent into Spinal Canal, Percutaneous Approach (ICD-10-PCS; 2019-12-07)
PROC: 00HU33Z Insertion of Infusion Device into Spinal Canal, Percutaneous Approach (ICD-10-PCS; 2019-12-07)
PROC: 3E0234Z Introduction of Serum, Toxoid and Vaccine into Muscle, Percutaneous Approach (ICD-10-PCS; 2019-12-08)
DX: O69.2XX0 Labor and delivery complicated by other cord entanglement, with compression, not applicable or unspecified (principal); Z37.0 Single live birth; O99.214 Obesity complicating childbirth; E66.9 Obesity, unspecified; O34.211 Maternal care for low transverse scar from previous cesarean delivery; O99.824 Streptococcus B carrier state complicating childbirth; Z3A.39 39 weeks gestation of pregnancy; Z23 Encounter for immunization
CPT/HCPCS: 36415; S0020; 85025; 86592; 86850; 86900; G0378; J2540; J3010; J3490; J2590; J7050; J7120

== ENCOUNTER 2020-05-12 14:24 | Emergency (ER) | payer MEDICAID ==
[~2020-05-12] VITALS: Ht 154.9 cm; Wt 107.0 kg
[~2020-05-12 14:24] MED LIST changes: +IBUP-1223 PO
[2020-05-12 14:35] VITALS: BP 141/101
--- NOTE | 2020-05-12 15:17 | NUR ---
29 YO FEMALE COMING IN WITH C/O SORE THROAT, DENIES ANY OTHER SYMPTOMS AT THIS TIME. ERP IN ROOM FOR EVAL. RESPIRATIONS EVEN AND UNLABORED.
[2020-05-12] MEDS ORDERED: IBUPROFEN 200 MG TABLET ONE (15:24)
[2020-05-12] MEDS ORDERED: IBUPROFEN 200 MG TABLET PO ONE (15:30)
== END 2020-05-12 16:49 | disposition home or self-care (01) ==
LOC: ED 15:30
DX: B34.9 Viral infection, unspecified (principal); R00.0 Tachycardia, unspecified
CPT/HCPCS: 99282

== ENCOUNTER 2020-05-26 17:02 | Emergency (ER) | payer MEDICAID ==
[~2020-05-26] VITALS: Ht 154.9 cm; Wt 109.6 kg
[2020-05-26 17:11] VITALS: BP 125/78
--- NOTE | 2020-05-26 17:15 | NUR ---
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
[2020-05-26] MEDS ORDERED: IBUPROFEN 200 MG TABLET PO ONE (19:00)
[2020-05-26] MEDS ORDERED: IBUPROFEN 600 MG TABLET ONE (19:03)
== END 2020-05-26 19:09 | disposition home or self-care (01) ==
LOC: ED 18:20
DX: R07.89 Other chest pain (principal); R94.31 Abnormal electrocardiogram [ECG] [EKG]
CPT/HCPCS: 71045; 93005; 99283

== ENCOUNTER 2020-06-26 08:11 | Emergency (ER) | payer MEDICAID ==
[~2020-06-26] VITALS: Ht 154.9 cm; Wt 109.8 kg
--- NOTE | 2020-06-26 09:30 | NUR ---
DIZZINESS X 2 DAYS. WITHOUT KNOWN CAUSE. PATIENT DOES REPORT HX OF ANEMIA VSS, FSBS WNL PATIENT UNABLE TO DIFFERENTIATE BETWEEN LIGHTHEADED DIZZINESS VS ROOM SPINNING. POC DISCUSSED WITH CYNDI TO ADMIN ANTIVERT, CHECK BASIC SERUM LABS
[2020-06-26 09:33] LABS: BASOPHILS % (AUTO) 1 % (0-1); EOSINOPHILS % (AUTO) 2 % (1-7); LYMPHOCYTES % (AUTO) 31 % (22-44); MEAN CORPUSCULAR HEMOGLOBIN 27.5 pg (27.0-34.8); MEAN CORPUSCULAR HGB CONC 32.5 g/dL (32.4-35.8); MEAN PLATELET VOLUME 7.9 fL (7.4-10.4); MONOCYTES % (AUTO) 4 % (2-9); NEUTROPHILS % (AUTO) 63 % (42-75); PLATELET COUNT 349 x10^3/uL (130-400); RED BLOOD COUNT 4.57 x10^6/uL (3.82-5.3); RED CELL DISTRIBUTION WIDTH 15.1 % (9.6-15.2)
[2020-06-26] MEDS ORDERED: MECLIZINE CHEWABLE 25 MG TAB ONE (09:41)
--- NOTE | 2020-06-26 09:50 | NUR ---
MEDICATED PER EMAR WITH ANTIVERT FOR DIZZINESS
[2020-06-26 09:54] LABS: MD NO
[2020-06-26 09:59] LABS: ALBUMIN 3.7 g/dL (3.4-5.0); CALCIUM 8.7 mg/dL (8.5-10.1)
[2020-06-26] MEDS ORDERED: MECLIZINE CHEWABLE 25 MG TAB PO ONE (10:00)
[2020-06-26 10:18] LABS: ALANINE AMINOTRANSFERASE 25 U/L (12-78); ALKALINE PHOSPHATASE 60 U/L (45-117); ANION GAP 5 mmol/L (5-15); BILIRUBIN,TOTAL 0.3 mg/dL (0.2-1.0); CHLORIDE 106 mmol/L (98-107); CREATININE 0.47 mg/dL (0.55-1.02); TOTAL PROTEIN 7.9 g/dL (6.4-8.2)
[2020-06-26] MEDS ORDERED: PROMETHAZINE 25 MG/ML, 1ML IM ONE (10:30)
[2020-06-26] MEDS ORDERED: PROMETHAZINE 25 MG/ML, 1ML ONE (10:54)
--- NOTE | 2020-06-26 11:03 | NUR ---
PATIENT DIZZINESS ONLY SLIGHTLY IMPROVED TO 8/10 FROM 05/25. PATIENT HAS ALSO BEEN UP VOID >5 TIMES IN LAST 45 MINUTES-PROVIDER MADE AWARE MEDICATED PER EMAR FOR NAUSEA AFTER CLARIFICATION OF NEGATIVE REPEAT VITALS UNREMARKABLE
[2020-06-26 11:08] LABS: MICROSCOPIC AUTO
--- NOTE | 2020-06-26 11:41 | NUR ---
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
[2020-06-26 11:43] VITALS: BP 129/74
== END 2020-06-26 11:46 | disposition home or self-care (01) ==
LOC: ED 10:15
DX: R42 Dizziness and giddiness (principal); R11.0 Nausea
CPT/HCPCS: 36415; 80053; 81001; 83690; 84703; 85025; 87086; 96372; 99283; J2550; 82962

== ENCOUNTER 2020-12-02 16:53 | Emergency (ER) | payer MEDICAID ==
[~2020-12-02] VITALS: Ht 154.9 cm; Wt 114.5 kg
[2020-12-02 17:00] VITALS: BP 128/86
[2020-12-02] MEDS ORDERED: DEXAMETHASONE 4 MG TABLET ONE (17:50)
[2020-12-02] MEDS ORDERED: ACETAMINOPHEN 500 MG TABLET ONE (17:50)
[2020-12-02] MEDS ORDERED: ACETAMINOPHEN 500 MG TABLET PO ONE (18:00)
[2020-12-02] MEDS ORDERED: DEXAMETHASONE 4 MG TABLET PO ONE (18:00)
== END 2020-12-02 18:13 | disposition home or self-care (01) ==
LOC: ED 17:40
DX: J04.0 Acute laryngitis (principal); Z20.822 Contact with and (suspected) exposure to COVID-19
CPT/HCPCS: 99283; U0003

== ENCOUNTER 2020-12-31 08:29 | Emergency (ER) | payer MEDICAID ==
[~2020-12-31] VITALS: Ht 154.9 cm; Wt 113.0 kg
--- NOTE | 2020-12-31 09:00 | NUR ---
SAME TRIAGE NOTE. 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 C/O SPOTTING, NAUSEA, DIZZINESS/LIGHTHEADEDNESS. HX ANEMIA WITH .
[2020-12-31] MEDS ORDERED: ONDANSETRON ODT 4 MG ONE (09:15)
--- NOTE | 2020-12-31 09:18 | NUR ---
PT MEDICATED PER ORDERS. UNDERSTANDS POC.
[2020-12-31] MEDS ORDERED: ONDANSETRON ODT 4 MG PO ONE (09:30)
[2020-12-31 09:33] LABS: BASOPHILS % (AUTO) 1 % (0-1); EOSINOPHILS % (AUTO) 1 % (1-7); LYMPHOCYTES % (AUTO) 29 % (22-44); MEAN CORPUSCULAR HGB CONC 33.1 g/dL (32.4-35.8); MEAN PLATELET VOLUME 7.9 fL (7.4-10.4); MONOCYTES % (AUTO) 3 % (2-9); NEUTROPHILS % (AUTO) 67 % (42-75); PLATELET COUNT 350 x10^3/uL (130-400); RED BLOOD COUNT 4.22 x10^6/uL (3.82-5.3); RED CELL DISTRIBUTION WIDTH 14.9 % (9.6-15.2)
[2020-12-31 09:35] LABS: MD NO
[2020-12-31 09:37] LABS: MICROSCOPIC AUTO
--- NOTE | 2020-12-31 09:50 | NUR ---
PT IN . REPORTED TO SORAYA BROOKE.
[2020-12-31 10:59] VITALS: BP 110/76
== END 2020-12-31 11:40 | disposition home or self-care (01) ==
LOC: ED 08:32
DX: O23.11 Infections of bladder in pregnancy, first trimester (principal); O20.9 Hemorrhage in early pregnancy, unspecified; Z3A.01 Less than 8 weeks gestation of pregnancy
CPT/HCPCS: 36415; 76801; 81001; 84702; 85025; 86901; 87086; 99284; Q0162

== ENCOUNTER 2021-05-14 10:04 | Emergency (ER) | payer MEDICAID ==
[~2021-05-14] VITALS: Ht 154.9 cm; Wt 108.9 kg
[2021-05-14 11:36] VITALS: BP 116/77
== END 2021-05-14 12:26 | disposition home or self-care (01) ==
LOC: ED 10:08
DX: U07.1 COVID-19 (principal); J18.9 Pneumonia, unspecified organism; R00.0 Tachycardia, unspecified
CPT/HCPCS: 36415; 71045; 80053; 81001; 84703; 85025; 87086; 93005; 96361; 96374; 96375; 99285; J1885; J2405; J7030